=== PATIENT | male | born 1945 | race Caucasian/White ===

== ENCOUNTER 2019-01-21 15:35 | Observation (INO) ==
[2019-01-21] MEDS ORDERED: Ondansetron 4 MG/2 ML VIAL IVP ONE (15:59)
[2019-01-21] MEDS ORDERED: 0.9 % Sodium Chloride 1,000 ML IVC ONE (15:59)
[2019-01-21 16:19] LABS: Basophils # 0.1 K/mcL (0.0-0.2); Basophils % 1.2 %; Hematocrit 27.9 % (37.5-50.1); Immature Granulocytes % 19.6 % (0-4); Lymphocytes # 0.9 K/mcL (0.6-4.6); Lymphocytes % 16.8 %; Mean Corpuscular HGB Conc 32.3 g/dL (31.6-35.5); Mean Corpuscular Hemoglobin 31.7 pg (28.0-33.3); Mean Corpuscular Volume 98.2 fL (83.0-100.0); Mean Platelet Volume 10.2 fL (9.4-12.4); Monocytes # 0.6 K/mcL (0.0-1.3); Monocytes % 10.9 %; Neutrophils # 2.6 K/mcL (1.6-8.9); Nucleated Red Blood Cells 10.5 /100 WBC (0); Red Blood Count 2.84 M/mcL (4.19-5.50); Red Cell Distribution Width 18.1 % (11.5-14.5); Segmented Neutrophils % 51.5 %; White Blood Count 5.1 K/mcL (4.3-11.1)
[2019-01-21 16:21] LABS: Platelet Count 47 K/mcL (140-400)
[2019-01-21 16:34] LABS: Bilirubin,Urine Small (Negative); Blood,Urine Negative (Negative); Clarity,Urine Cloudy (Clear); Color,Urine Dark Yellow (Yellow); Glucose,Urine (UA) Normal (Normal); Ketones,Urine Trace mg/dL (Negative); Leukocyte Esterase,Urine Negative (Negative); Nitrite,Urine Negative (Negative); PH,Urine 5.5 pH Units (5.0-8.0); Protein,Urine 30 mg/dL (Neg-Trace); Specific Gravity,Urine 1.025 (1.010-1.025); Urobilinogen,Urine Normal (Normal)
[2019-01-21 16:37] LABS: Bacteria,Urine None Seen per hpf (None-Few); Squamous Epithelial Cell,Urine Many per lpf (None-Few); WBC,Urine 0-3 per hpf (0-3)
[2019-01-21 16:43] LABS: Platelet Estimate Decreased (Normal)
[2019-01-21 16:45] LABS: BUN/Creatinine Ratio 19 (6-26); Blood Urea Nitrogen 20 mg/dL (8-23); Calcium 8.8 mg/dL (8.6-10.3); Carbon Dioxide 26 mEq/L (23-29); Chloride 101 mEq/L (98-107); Glucose 218 mg/dL (70-105); Osmolality,Calculated 291 (280-300); Sodium 136 mEq/L (136-145); eGFR For African Americans > 60 (> 60); eGFR For Non-African Americans > 60 (> 60)
[2019-01-21 16:46] LABS: Calcium Oxalate Crystals,Urine Present
[2019-01-21 16:47] LABS: Hyaline Casts,Urine Few per lpf (None-Few)
[2019-01-21 16:48] LABS: Granular Casts,Urine Few per lpf (None Seen)
[2019-01-21] MEDS ORDERED: *HR* Promethazine 25 MG/ML VIAL IVP PRN (18:00)
[2019-01-21] MEDS ORDERED: Naloxone 0.4 MG/ML INJ IVP PRN (18:00)
[2019-01-21] MEDS ORDERED: *HR* Dextrose 50 % in Water (Syg) 50 ML SYRINGE IVP PRN (18:18)
[2019-01-21] MEDS ORDERED: D5% in Water 1,000 ML IVC PRN (18:18)
[2019-01-21] MEDS ORDERED: Dextrose Gel 15 GM/37.5 ML TUBE PO PRN ×2 (18:18)
[2019-01-21] MEDS ORDERED: Famotidine 20 MG TABLET PO PRN (18:21)
[2019-01-21 18:33] LABS: Troponin I 0.03 ng/mL (< 0.04)
[2019-01-21] MEDS: predniSONE 5 MG TABLET PO SCH (19:41)
[2019-01-21] MEDS: Ringers Solution, Lactated 1,000 ML IVC SCH (19:41)
[2019-01-22 04:45] LABS: Hemoglobin 7.7 g/dL (12.9-16.9)
[2019-01-22 04:46] LABS: VBG Ionized Calcium 1.16 mmol/L (1.15-1.35)
[2019-01-22 04:48] LABS: Basophils % 0.4 %; Hematocrit 24.4 % (37.5-50.1); Immature Granulocytes % 15.3 % (0-4); Immature Platelets 5.5 % (1.1-6.1); Lymphocytes % 21.4 %; Mean Corpuscular HGB Conc 31.6 g/dL (31.6-35.5); Mean Corpuscular Hemoglobin 31.6 pg (28.0-33.3); Mean Platelet Volume 11.7 fL (9.4-12.4); Monocytes # 0.5 K/mcL (0.0-1.3); Monocytes % 9.3 %; Neutrophils # 2.6 K/mcL (1.6-8.9); Nucleated Red Blood Cells 8.5 /100 WBC (0); Red Blood Count 2.44 M/mcL (4.19-5.50); Red Cell Distribution Width 17.7 % (11.5-14.5); Segmented Neutrophils % 53.6 %; White Blood Count 4.9 K/mcL (4.3-11.1)
[2019-01-22 05:01] LABS: Lymphocytes # 1.1 K/mcL (0.6-4.6); Platelet Count 49 K/mcL (140-400)
[2019-01-22 05:06] LABS: % Iron Saturation 16 % (20-55); Iron 29 mcg/dL (65-175); Transferrin 127 mg/dL (203-362)
[2019-01-22 05:07] LABS: Alanine Aminotransferase 17 Units/L (7-52); Albumin 3.1 g/dL (3.5-5.7); Albumin/Globulin Ratio 1.1 (1.1-2.2); Alkaline Phosphatase 306 Units/L (34-104); Aspartate Amino Transferase 24 Units/L (13-39); BUN/Creatinine Ratio 18 (6-26); Bilirubin,Total 0.8 mg/dL (0.3-1.0); Blood Urea Nitrogen 17 mg/dL (8-23); Calcium 8.5 mg/dL (8.6-10.3); Carbon Dioxide 27 mEq/L (23-29); Chloride 104 mEq/L (98-107); Globulin 2.9 g/dL (2.4-3.5); Glucose 148 mg/dL (70-105); Osmolality,Calculated 286 (280-300); Phosphorous 4.3 mg/dL (2.7-4.5); Potassium 4.3 mEq/L (3.5-5.1); Sodium 136 mEq/L (136-145); eGFR For African Americans > 60 (> 60); eGFR For Non-African Americans > 60 (> 60)
[2019-01-22 05:20] LABS: Thyroid Stimulating Hormone 0.067 mcIU/mL (0.340-5.600)
[2019-01-22 05:26] LABS: Ferritin > 1500 ng/mL (20-250)
[2019-01-22 05:29] LABS: Folate 17.5 ng/mL (3.0-16.0)
[2019-01-22 05:48] LABS: Polychromasia 1+ (Not Present)
[2019-01-22 05:49] LABS: Basophilic Stippling 1+ (Not Present)
[2019-01-22 05:51] LABS: Platelet Estimate Decreased (Normal)
[2019-01-22] MEDS ORDERED: *HR* Enoxaparin 40 MG/0.4 ML SYRINGE SQ SCH (06:00)
[2019-01-22] MEDS: Ringers Solution, Lactated 1,000 ML IVC SCH (07:55)
[2019-01-22] MEDS: Insulin LISPRO 300 UNITS/3 ML VIAL SQ SCH ×3 (07:55→17:35)
[2019-01-22] MEDS: predniSONE 10 MG TABLET PO SCH (07:55)
[2019-01-22 13:41] LABS: Hematocrit 25.8 % (37.5-50.1); Hemoglobin 8.4 g/dL (12.9-16.9)
[2019-01-22] MEDS: predniSONE 5 MG TABLET PO SCH (17:35)
[2019-01-22] MEDS: Aspirin 81 MG TAB.CHEW PO SCH (17:35)
[2019-01-23 06:37] LABS: Mean Platelet Volume 10.5 fL (9.4-12.4)
[2019-01-23 06:39] LABS: Hematocrit 22.9 % (37.5-50.1); Hemoglobin 7.3 g/dL (12.9-16.9); Immature Platelets 6.5 % (1.1-6.1); Mean Corpuscular HGB Conc 31.9 g/dL (31.6-35.5); Mean Corpuscular Hemoglobin 31.2 pg (28.0-33.3); Mean Corpuscular Volume 97.9 fL (83.0-100.0); Red Blood Count 2.34 M/mcL (4.19-5.50); Red Cell Distribution Width 17.4 % (11.5-14.5); White Blood Count 4.1 K/mcL (4.3-11.1)
[2019-01-23 06:40] LABS: Platelet Count 49 K/mcL (140-400)
[2019-01-23 06:59] LABS: BUN/Creatinine Ratio 24 (6-26); Blood Urea Nitrogen 18 mg/dL (8-23); Calcium 8.7 mg/dL (8.6-10.3); Carbon Dioxide 29 mEq/L (23-29); Chloride 102 mEq/L (98-107); Glucose 152 mg/dL (70-105); Osmolality,Calculated 291 (280-300); Sodium 138 mEq/L (136-145); eGFR For African Americans > 60 (> 60); eGFR For Non-African Americans > 60 (> 60)
[2019-01-23 07:02] LABS: Lymphocytes # 0.7 K/mcL (0.6-4.6); Neutrophils # 3.3 K/mcL (1.6-8.9); Poikilocytosis 1+ (Not Present); Polychromasia 1+ (Not Present)
[2019-01-23 07:03] LABS: Ovalocytes 1+ (Not Present); Platelet Estimate Decreased (Normal); Tear Drop Cells 1+ (Not Present)
[2019-01-23] MEDS: Insulin LISPRO 300 UNITS/3 ML VIAL SQ SCH ×2 (08:10→11:40)
[2019-01-23] MEDS: Aspirin 81 MG TAB.CHEW PO SCH (08:11)
[2019-01-23] MEDS: predniSONE 10 MG TABLET PO SCH (08:11)
[2019-01-23 11:23] VITALS: BP 136/70
[2019-01-23] MEDS ORDERED: Isovue-370 500 ML BOTTLE IVP ONE ×2 (11:53)
[2019-01-23 15:09] LABS: Hematocrit 22.3 % (37.5-50.1); Hemoglobin 7.1 g/dL (12.9-16.9)
== END 2019-01-23 17:16 | disposition home or self-care (01) ==
LOC: EMEROOARM 15:35 → 3BNU 15:35
PROVIDERS: ADMIT Student in an Organized Health Care Education/Training Program; ATTEND Student in an Organized Health Care Education/Training Program

== ENCOUNTER 2019-02-11 12:24 | Observation (INO) ==
[2019-02-11] MEDS ORDERED: 0.9 % Sodium Chloride 1,000 ML IVC ONE ×2 (12:59→14:45)
[2019-02-11 13:26] LABS: Basophils % 0.3 %; Hematocrit 32.9 % (37.5-50.1); Hemoglobin 11.1 g/dL (12.9-16.9); Immature Granulocytes % 12.1 % (0-4); Lymphocytes # 1.4 K/mcL (0.6-4.6); Lymphocytes % 19.3 %; Mean Corpuscular HGB Conc 33.7 g/dL (31.6-35.5); Mean Corpuscular Hemoglobin 31.2 pg (28.0-33.3); Mean Platelet Volume 10.9 fL (9.4-12.4); Monocytes # 0.6 K/mcL (0.0-1.3); Monocytes % 8.9 %; Neutrophils # 4.3 K/mcL (1.6-8.9); Nucleated Red Blood Cells 5.7 /100 WBC (0); Red Blood Count 3.56 M/mcL (4.19-5.50); Red Cell Distribution Width 17.2 % (11.5-14.5); Segmented Neutrophils % 59.4 %; White Blood Count 7.2 K/mcL (4.3-11.1)
[2019-02-11 13:28] LABS: Mean Corpuscular Volume 92.4 fL (83.0-100.0); Platelet Count 92 K/mcL (140-400)
[2019-02-11 13:48] LABS: Alanine Aminotransferase 29 Units/L (7-52); Albumin 3.1 g/dL (3.5-5.7); Albumin/Globulin Ratio 0.9 (1.1-2.2); Alkaline Phosphatase 368 Units/L (34-104); Aspartate Amino Transferase 35 Units/L (13-39); BUN/Creatinine Ratio 22 (6-26); Bilirubin,Total 0.7 mg/dL (0.3-1.0); Blood Urea Nitrogen 22 mg/dL (8-23); Calcium 8.5 mg/dL (8.6-10.3); Carbon Dioxide 25 mEq/L (23-29); Chloride 99 mEq/L (98-107); Globulin 3.5 g/dL (2.4-3.5); Glucose 46 mg/dL (70-105); Osmolality,Calculated 280 (280-300); Sodium 135 mEq/L (136-145); Total Protein 6.6 g/dL (6.4-8.9); Troponin I < 0.03 ng/mL (< 0.04); eGFR For African Americans > 60 (> 60); eGFR For Non-African Americans > 60 (> 60)
[2019-02-11] MEDS ORDERED: *HR* Dextrose 50 % in Water (Syg) 50 ML SYRINGE IVP ONE (14:40)
[2019-02-11] MEDS ORDERED: *HR* Dextrose 50 % in Water (Syg) 50 ML SYRINGE ONE (14:55)
[2019-02-11] MEDS ORDERED: *HR* FentaNYL (PF) 100 MCG/2 ML VIAL IVP ONE (15:08)
[2019-02-11 15:13] LABS: Platelet Estimate Decreased (Normal); Polychromasia 1+ (Not Present)
[2019-02-11] MEDS ORDERED: Hydrocortisone Sodium Succ 100 MG/2 ML VIAL IVP ONE (15:39)
[2019-02-11] MEDS ORDERED: *HR* HYDROcodone/Acet 5/325 mg TABLET PO PRN (17:23)
[2019-02-11] MEDS ORDERED: Naloxone 0.4 MG/ML INJ IVP PRN (17:23)
[2019-02-11 17:27] LABS: Bilirubin,Urine Negative (Negative); Blood,Urine Negative (Negative); Clarity,Urine Clear (Clear); Color,Urine Yellow (Yellow); Glucose,Urine (UA) Normal (Normal); Ketones,Urine Trace mg/dL (Negative); Leukocyte Esterase,Urine Negative (Negative); Nitrite,Urine Negative (Negative); Protein,Urine Negative (Neg-Trace); Specific Gravity,Urine 1.015 (1.010-1.025); Urobilinogen,Urine Normal (Normal)
[2019-02-11] MEDS: MethylPREDNISolone 40 MG/ML VIAL IVP SCH (20:05)
[2019-02-11] MEDS: D5% in 0.9% NACL 1,000 ML IVC SCH (20:05)
[2019-02-11] MEDS: *HR* Heparin 5,000 UNIT/ML VIAL SQ SCH (20:05)
[2019-02-11] MEDS: Cholecalciferol (D-3) 1,000 UNIT (25MCG) TABLET PO SCH (20:05)
[2019-02-12 02:10] LABS: Lymphocytes % 10.6 %; Mean Corpuscular HGB Conc 32.5 g/dL (31.6-35.5); Mean Corpuscular Volume 94.2 fL (83.0-100.0); Mean Platelet Volume 11.5 fL (9.4-12.4)
[2019-02-12 02:12] LABS: Basophils # 0.1 K/mcL (0.0-0.2); Basophils % 0.8 %; Hematocrit 29.2 % (37.5-50.1); Hemoglobin 9.5 g/dL (12.9-16.9); Immature Granulocytes % 11.8 % (0-4); Immature Platelets 6.4 % (1.1-6.1); Lymphocytes # 0.8 K/mcL (0.6-4.6); Mean Corpuscular Hemoglobin 30.6 pg (28.0-33.3); Monocytes # 0.4 K/mcL (0.0-1.3); Monocytes % 5.4 %; Neutrophils # 5.1 K/mcL (1.6-8.9); Segmented Neutrophils % 71.4 %; White Blood Count 7.1 K/mcL (4.3-11.1)
[2019-02-12 02:16] LABS: INR 1.4; Prothrombin Time 15.5 Seconds (9.4-12.1)
[2019-02-12 02:20] LABS: Platelet Count 80 K/mcL (140-400)
[2019-02-12 02:23] LABS: BUN/Creatinine Ratio 25 (6-26); Blood Urea Nitrogen 21 mg/dL (8-23); Calcium 8.1 mg/dL (8.6-10.3); Carbon Dioxide 23 mEq/L (23-29); Chloride 105 mEq/L (98-107); Glucose 235 mg/dL (70-105); Magnesium 1.9 mg/dL (1.6-2.6); Osmolality,Calculated 295 (280-300); Phosphorous 4.5 mg/dL (2.7-4.5); Potassium 4.4 mEq/L (3.5-5.1); Sodium 137 mEq/L (136-145); eGFR For African Americans > 60 (> 60); eGFR For Non-African Americans > 60 (> 60)
[2019-02-12 04:06] LABS: Anisocytosis 1+ (Not Present); Polychromasia 1+ (Not Present); Tear Drop Cells 1+ (Not Present)
[2019-02-12] MEDS: *HR* Heparin 5,000 UNIT/ML VIAL SQ SCH ×3 (04:58→20:14)
[2019-02-12] MEDS: MethylPREDNISolone 40 MG/ML VIAL IVP SCH (05:08)
[2019-02-12] MEDS: Cholecalciferol (D-3) 1,000 UNIT (25MCG) TABLET PO SCH ×2 (07:54→20:14)
[2019-02-12] MEDS: Aspirin 81 MG TAB.CHEW PO SCH (07:54)
[2019-02-12] MEDS: D5% in 0.9% NACL 1,000 ML IVC SCH (09:48)
[2019-02-12] MEDS ORDERED: Dextrose Gel 15 GM/37.5 ML TUBE PO PRN ×2 (12:19)
[2019-02-12] MEDS ORDERED: *HR* Dextrose 50 % in Water (Syg) 50 ML SYRINGE IVP PRN (12:19)
[2019-02-12] MEDS ORDERED: D5% in Water 1,000 ML IVC PRN (12:19)
[2019-02-12] MEDS ORDERED: Insulin LISPRO 300 UNITS/3 ML VIAL SQ SCH ×3 (12:20→21:00)
[2019-02-12] MEDS ORDERED: E-Z-PAQUE (BARIUM SULF) SUSP 1 BOTTLE PO ONE (12:56)
[2019-02-12] MEDS ORDERED: E-Z-HD (BARIUM SULF) SUSPENSION PO ONE (12:56)
[2019-02-12] MEDS: 0.9 % Sodium Chloride 1,000 ML IVC SCH (17:11)
[2019-02-12] MEDS: Insulin LISPRO 300 UNITS/3 ML VIAL SQ SCH (17:14)
[2019-02-12 17:19] LABS: BUN/Creatinine Ratio 28 (6-26); Blood Urea Nitrogen 30 mg/dL (8-23); Calcium 8.3 mg/dL (8.6-10.3); Carbon Dioxide 19 mEq/L (23-29); Chloride 99 mEq/L (98-107); Glucose 613 mg/dL (70-105); Osmolality,Calculated 311 (280-300); Potassium 3.7 mEq/L (3.5-5.1); Sodium 133 mEq/L (136-145); eGFR For African Americans > 60 (> 60); eGFR For Non-African Americans > 60 (> 60)
[2019-02-12] MEDS ORDERED: predniSONE 5 MG TABLET PO SCH (18:00)
[2019-02-12 18:39] LABS: Estimated Average Glucose 177 mg/dl
[2019-02-12] MEDS ORDERED: Insulin DETEMIR 100 UNIT/ML X5UNITS SQ SCH (21:00)
[2019-02-13] MEDS: *HR* Heparin 5,000 UNIT/ML VIAL SQ SCH (05:30)
[2019-02-13] MEDS: 0.9 % Sodium Chloride 1,000 ML IVC SCH (06:41)
[2019-02-13 07:00] LABS: Red Cell Distribution Width 16.8 % (11.5-14.5)
[2019-02-13 07:02] LABS: Hemoglobin 8.7 g/dL (12.9-16.9); Immature Platelets 5.9 % (1.1-6.1); Lymphocytes # 0.5 K/mcL (0.6-4.6); Mean Corpuscular HGB Conc 33.5 g/dL (31.6-35.5); Mean Corpuscular Hemoglobin 31.2 pg (28.0-33.3); Mean Corpuscular Volume 93.2 fL (83.0-100.0); Mean Platelet Volume 11.2 fL (9.4-12.4); Red Blood Count 2.79 M/mcL (4.19-5.50); White Blood Count 6.5 K/mcL (4.3-11.1)
[2019-02-13 07:06] LABS: Platelet Count 80 K/mcL (140-400)
[2019-02-13 07:33] VITALS: BP 110/53
[2019-02-13 07:44] LABS: BUN/Creatinine Ratio 33 (6-26); Blood Urea Nitrogen 28 mg/dL (8-23); Calcium 8.3 mg/dL (8.6-10.3); Carbon Dioxide 26 mEq/L (23-29); Chloride 107 mEq/L (98-107); Glucose 159 mg/dL (70-105); Magnesium 2.2 mg/dL (1.6-2.6); Osmolality,Calculated 301 (280-300); Potassium 4.1 mEq/L (3.5-5.1); Sodium 141 mEq/L (136-145); eGFR For African Americans > 60 (> 60); eGFR For Non-African Americans > 60 (> 60)
[2019-02-13 07:48] LABS: Eosinophils # 0.1 K/mcL (0.0-0.6); Monocytes # 0.7 K/mcL (0.0-1.3); Neutrophils # 5.2 K/mcL (1.6-8.9); Platelet Estimate Decreased (Normal)
[2019-02-13] MEDS: Insulin LISPRO 300 UNITS/3 ML VIAL SQ SCH (08:40)
[2019-02-13] MEDS: Aspirin 81 MG TAB.CHEW PO SCH (08:41)
[2019-02-13] MEDS: Cholecalciferol (D-3) 1,000 UNIT (25MCG) TABLET PO SCH (08:41)
[2019-02-13] MEDS ORDERED: predniSONE 10 MG TABLET PO SCH (09:00)
== END 2019-02-13 11:38 | disposition home or self-care (01) ==
LOC: EMEROOARM 12:24 → 3BNU 12:24
PROVIDERS: ADMIT Internal Medicine; ATTEND Internal Medicine